=== PATIENT | male | born 1945 | race Caucasian/White ===

== ENCOUNTER → 2016-08-02 | Outpatient (CLI) | payer MEDICARE, OTHER ==
--- NOTE | 2016-08-02 10:16 | US ---
EXAMINATION TYPE: US abdomen complete DATE OF EXAM: 08/02/2016 8:49 AM COMPARISON: NONE CLINICAL HISTORY: R16.2 Hepatomegaly with splenomegaly, E80.6. Pt states elevated LFT's EXAM MEASUREMENTS: Liver Length: 16.4 cm Gallbladder Wall: 0.3 cm CBD: 0.6 cm Spleen: 13.1 cm Right Kidney: 11.0 x 5.7 x 5.3 cm Left Kidney: 12.0 x 6.1 x 5.9 cm TECHNOLOGIST IMPRESSION: Pancreas: Obscured by bowel gas Liver: Cyst right inferior lobe= 1.5 x 0.8 x 1.5 cm/ otherwise appeared wnl Gallbladder: Appeared slightly contracted, otherwise appeared wnl Evidence for sonographic Joshi's sign: CBD: wnl Spleen: Slightly enlarged the spleen measures 13 cm Right Kidney: wnl Left Kidney: wnl Upper IVC: wnl Abd Aorta: Proximal portion upper limits of normal There is no ascites The liver is homogenous, echotexture is coarse, there is a small cystic focus in the right lobe infer iorly measuring 15 mm. The intrahepatic portion of the IVC and proximal abdominal aorta are within n ormal limits. There is no evidence of cholelithiasis. Common bile duct is unremarkable. The visual ized portions of the pancreas are homogenous. The spleen is borderline enlarged. Kidneys are symmet tate and free of hydronephrosis. No renal lesions are seen. IMPRESSION: Probable fatty infiltration of the liver. Borderline splenomegaly. Somewhat limited exam.
== END ==
LOC: RADUSWWP 08:23
PROVIDERS: ATTEND Internal Medicine
DX: R16.1 Splenomegaly, not elsewhere classified (principal); R97.20 Elevated prostate specific antigen [PSA]
CPT/HCPCS: 36415; 76700; 84153

== ENCOUNTER → 2016-11-22 | Outpatient (CLI) | payer MEDICARE, OTHER ==
[2016-11-22 07:06] LABS: Basophils # (A) 0.1 k/uL (0-0.2); Basophils % (A) 1 %; CHCM 34.3; Eosinophils # (A) 0.1 k/uL (0-0.7); Eosinophils % (A) 1 %; HCT 42.8 % (39.0-53.0); HDW 2.57; HGB 14.6 gm/dL (13.0-17.5); Luc # (Auto) 0.14; Luc % (Auto) 2; Lymphocytes # (A) 2.1 k/uL (1.0-4.8); Lymphocytes % (A) 25 %; MCHC 34.2 g/dL (31.0-37.0); Mean Platelet Volume 8.1; Monocytes # (A) 0.5 k/uL (0-1.0); Monocytes % (A) 6 %; Neutrophils # (A) 5.4 k/uL (1.3-7.7); Neutrophils % (A) 65 %; RBC 4.87 m/uL (4.30-5.90); RDW 13.4 % (11.5-15.5); WBC 8.3 k/uL (3.8-10.6); WBC (Perox) 8.63
[2016-11-22 07:35] LABS: Anion Gap 11 mmol/L; Blood Urea Nitrogen 18 mg/dL (9-20); Calcium 9.2 mg/dL (8.4-10.2); Carbon Dioxide 23 mmol/L (22-30); Chloride 107 mmol/L (98-107); Glucose 127 mg/dL (74-99); Non-African American GFR(MDRD) >60 (>60 ml/min/1.73 sqM); Potassium 4.4 mmol/L (3.5-5.1); Sodium 141 mmol/L (137-145)
[2016-11-22 14:38] LABS: Hemoglobin A1C 7.3 % (4.2-6.1)
== END | disposition home or self-care (01) ==
LOC: LABWHC1 06:26
PROVIDERS: ATTEND Internal Medicine
DX: E11.9 Type 2 diabetes mellitus without complications (principal)
CPT/HCPCS: 36415; 80048; 83036; 85025

== ENCOUNTER → 2018-03-18 | Outpatient (CLI) | payer MEDICARE, OTHER ==
[2018-03-18 07:26] LABS: Basophils # (A) 0.1 k/uL (0-0.2); Basophils % (A) 1 %; Eosinophils # (A) 0.2 k/uL (0-0.7); Eosinophils % (A) 1 %; HCT 41.7 % (39.0-53.0); HGB 14.2 gm/dL (13.0-17.5); Lymphocytes # (A) 1.9 k/uL (1.0-4.8); Lymphocytes % (A) 17 %; MCH 30.9 pg (25.0-35.0); MCHC 34.1 g/dL (31.0-37.0); MCV 90.5 fL (80.0-100.0); Mean Platelet Volume 7.6; Monocytes # (A) 0.8 k/uL (0-1.0); Monocytes % (A) 7 %; Neutrophils # (A) 8.5 k/uL (1.3-7.7); Neutrophils % (A) 74 %; Platelet Count 260 k/uL (150-450); RBC 4.61 m/uL (4.30-5.90); RDW 13.3 % (11.5-15.5); WBC 11.5 k/uL (3.8-10.6)
[2018-03-18 08:38] LABS: Erythrocyte Sedimentation Rate 23 mm/hr (0-15)
[2018-03-18 12:48] LABS: Albumin 4.5 g/dL (3.80-4.90); Albumin/Globulin Ratio 2.14 (1.20-2.10); Anion Gap 7.9 mmol/L (4.00-12.00); C Reactive Protein 0.8 mg/dL (0.0-0.8); Calcium 9.3 mg/dL (8.7-10.3); Carbon Dioxide 29.1 mmol/L (21.6-31.8); Globulin 2.1 g/dL (2.1-3.7); LDL Cholesterol,Calculated 69.6 mg/dL (0.0-131.0); Magnesium 1.6 mg/dL (1.5-2.4); Potassium 5.1 mmol/L (3.5-5.5); Prostate Specific Antigen 1.9 ng/mL (0.0-6.5); Total Bilirubin 2.2 mg/dL (0.3-1.2); Total Protein 6.6 g/dL (6.2-8.2); VLDL Calculation 42.4 mg/dL (5.00-40.00)
== END | disposition home or self-care (01) ==
LOC: LABWHC1 06:45
PROVIDERS: ATTEND Internal Medicine
DX: E55.9 Vitamin D deficiency, unspecified (principal); E78.5 Hyperlipidemia, unspecified; I10 Essential (primary) hypertension; E66.9 Obesity, unspecified; N40.0 Benign prostatic hyperplasia without lower urinary tract symptoms; E11.9 Type 2 diabetes mellitus without complications
CPT/HCPCS: 36415; 80053; 80061; 82306; 82550; 83036; 83735; 84153; 84443; 85025; 85652; 86140

== ENCOUNTER 2021-11-03 13:16 | Observation (INO) | payer MEDICARE, OTHER ==
[2021-11-03] MEDS ORDERED: HEPARIN SODIUM 1,000 UN/ML (10ML VL) ONE (14:25)
[2021-11-03] MEDS ORDERED: MIDAZOLAM 2 MG/2 ML VIAL IV ONE (14:28)
[2021-11-03] MEDS ORDERED: HEPARIN SODIUM 1,000 UN/ML (10ML VL) IV ONE (14:34)
[2021-11-03] MEDS ORDERED: IV FLUID CONTINUATION 500 ML IV ONE (14:38)
[2021-11-03] MEDS ORDERED: CLOPIDOGREL 75 MG TAB ONE (14:47)
[2021-11-03] MEDS ORDERED: CLOPIDOGREL 75 MG TAB PO ONE (14:54)
[2021-11-03] MEDS ORDERED: ADENOSINE 90 MG in SODIUM CHLORIDE 0.9% 60 ML IVP ONE (15:06)
[2021-11-03] MEDS ORDERED: VERAPAMIL SYRINGE (5 MG/10 ML) INTRAARTER ONE (15:09)
[2021-11-03] MEDS ORDERED: IOPAMIDOL-370 125ML BTL INJ ONE (15:09)
[2021-11-03] MEDS ORDERED: ZOLPIDEM 5 MG TAB PO PRN (15:11)
[2021-11-03] MEDS ORDERED: NITROGLYCERIN SL TABS 0.4 MG TAB SUBLINGUAL PRN (15:11)
[2021-11-03] MEDS ORDERED: ATROPINE SULFATE 0.1 MG/ML 10ML SYRINGE IV PRN (15:11)
[2021-11-03] MEDS ORDERED: MAG HYDROX/AL HYDROX/SIMETH 30 ML CUP PO PRN (15:11)
[2021-11-03] MEDS ORDERED: RX INFO: IV CONTRAST WAS GIVEN 1 EACH MISC MISCELLANE PRN (15:11)
[2021-11-03] MEDS ORDERED: SODIUM CHLORIDE 0.9% 1,000 ML in EMPTY BAG 1 BAG IV SCH (15:15)
--- NOTE | 2021-11-03 15:15 | P.PCN ---
Date of Procedure: 11/03/21 Operative Findings: PERCUTANEOUS CORONARY INTERVENTION Performing physician Immanuel Pope M.D. Procedure Performed: 1. Successful stenting of the mid LAD using 2.75 x 18 mm Xience drug-eluting stent with an excellent angiographic results. 2. Fractional flow reserve FFR of the right coronary artery Indication: This is a 76-year-old gentleman who was experiencing chest discomfort and underwent a stress test came in to be abnormal. He underwent a heart catheterization at [facility] and was found to have severe disease involving the mid LAD and intermediate disease involving the RCA Approach: Right radial artery Complications: None Level of Sedation: Moderate with a sedation length of 37 minutes Procedure Discussion: These referred to diagnostic heart catheterization was performed earlier today. After obtaining an informed consent the patient was brought to the cardiac laborer orchard. Anticoagulation was initiated and continued using heparin with continuous ACT monitoring. Subsequently the left main was engaged using a JL 3.5 guiding catheter. The LAD was wired using a run-through wire. Predilatation was performed using 2.5 x 12 mm balloon before I deployed 2.75 x 18 mm stent where the stent was positioned under fluoroscopy guidance and deployed under its nominal pressure the following angiogram showed an excellent angiographic results. After that we decided to FFR of the RCA. After zeroing the Doppler wire and equalizing between the Doppler wire and the guiding catheter which was JR4 guiding catheter we did an FFR. IV adenosine infusion and FFR came in to be at 0.90 which is nonischemic Postprocedure Management: 1. Aggressive cholesterol control 2. Dual antiplatelet therapy using aspirin and Plavix for at least 6 months 3. Follow-up with the patient
[2021-11-03 15:41] LABS: Glucose,Whole Blood 86 mg/dL (70-110)
[2021-11-03] MEDS ORDERED: ACETAMINOPHEN TAB 500 MG TAB PO ONE (16:13)
[2021-11-03 16:33] LABS: Glucose,Whole Blood 124 mg/dL (70-110)
[2021-11-03] MEDS: INSULIN ASPART (NovoLOG) 100 UNIT/ML VIAL SQ SCH ×2 (16:45→20:18)
[2021-11-03] MEDS: hydrALAZINE HCL 50 MG TAB PO SCH ×2 (17:07→20:18)
[2021-11-03] MEDS ORDERED: ATORVASTATIN 20 MG TAB PO SCH (19:45)
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
[2021-11-03] MEDS: TAMSULOSIN 0.4 MG CAP.ER.24H PO SCH (20:18)
[2021-11-03] MEDS: lisinopriL 10 MG TAB PO SCH (20:18)
[2021-11-03 20:25] LABS: Glucose,Whole Blood 124 mg/dL (70-110)
[2021-11-03] MEDS ORDERED: lisinopriL 10 MG TAB PO SCH (21:00)
[2021-11-03] MEDS ORDERED: INSULIN DETEMIR (LEVEMIR) 100 UNIT/ML SYR SQ SCH (21:00)
[2021-11-03] MEDS ORDERED: ATORVASTATIN 80 MG TAB PO SCH (21:00)
[2021-11-03] MEDS ORDERED: hydrALAZINE HCL 50 MG TAB PO SCH (22:00)
[2021-11-04 05:57] LABS: Glucose,Whole Blood 104 mg/dL (70-110)
[2021-11-04] MEDS: INSULIN ASPART (NovoLOG) 100 UNIT/ML VIAL SQ SCH ×3 (06:05→07:29)
[2021-11-04] MEDS ORDERED: ACETAMINOPHEN TAB 325 MG TAB PO PRN (06:58)
[2021-11-04] MEDS: TAMSULOSIN 0.4 MG CAP.ER.24H PO SCH (08:52)
[2021-11-04] MEDS: lisinopriL 10 MG TAB PO SCH (08:52)
[2021-11-04] MEDS: hydrALAZINE HCL 50 MG TAB PO SCH (08:52)
[2021-11-04] MEDS ORDERED: ASPIRIN 81 MG PO SCH (09:00)
[2021-11-04] MEDS ORDERED: CLOPIDOGREL 75 MG TAB PO SCH (09:00)
[2021-11-04] MEDS ORDERED: NON FORMULARY DRUG (Aspirin Ec 81 MG Tablet) PO SCH (09:00)
[2021-11-04] MEDS ORDERED: NON FORMULARY DRUG (Omega-3/Dha/Epa/Fish Oil [Fish Oil 1,000 Mg Softgel] 1 EACH Capsule) PO SCH (09:00)
[2021-11-04] MEDS ORDERED: lisinopriL 10 MG TAB PO SCH (09:00)
[2021-11-04] MEDS ORDERED: CHOLECALCIFEROL 25 MCG (1000 IU) TABLET PO SCH (09:00)
[2021-11-04 09:47] VITALS: BP 160/68; PULSE 46; RESP 16; TEMP 98.4
--- NOTE | 2021-11-04 10:59 | P.PN ---
Subjective Progress Note Date: 11/04/21 (Chest pain, coronary artery occlusive disease, status post stent in the LAD.) Dictation on the progress note Date of service 11/04/[address] Dave For follow-up on the medical consult. Final diagnosis: #1 coronary artery occlusive disease #2 status post cardiac catheterization in the [facility] by Dr. Vaughn. #3 transferred from [facility] to [facility] #4 status post angioplasty and stent placement in the LAD by Dr. Yuan. #5 diabetes mellitus type 2 insulin-dependent #6 sinus bradycardia. #7 hyperlipidemia #8 hypertension was hypertensive heart disease The attending physician Dr. Yuan. Wildlife Science Professor interventional. Patient seen today for follow-up on the medical consult. Patient denied any chest pain or shortness of breath or dizziness and his blood pressure is stable. His medication reconciled and reviewed. New Medication changes: #1 he has been on dual therapy for antiplatelet with chewable aspirin and Plavix. Cardiology Patient has eluted stent in the left anterior descending artery with the angioplasty as mentioned above #2 diabetes mellitus the same medication #3 hyperlipidemia with the increase of the atorvastatin to 80 mg until in the future seen his ergonomic specialist and adjust the dose. Patient is stable for discharge home from my medical point of view however this per cardiology decision when they make around. Dqcf-[id number]-vpos exam: No complaint, no bleeding from the site of the catheterization which is a right forearm. Head was normocephalic and atraumatic, normal hearing oropharynx negative Neck was supple no JVD no thyromegaly no lymphadenopathy trachea midline. Chest is clear to auscultation percussion Heart regular sinus rhythm with bradycardia. Abdomen: Soft positive bowel sounds Extremities no edema. Pulses. Neurologically stable. Assessment: Patient stable for discharge from medical point of view and up to the cardiology for the final decision. Follow-up appointment with Dr. Ritter in 57 days and follow-up with the cardiology of his choice Objective - Vital Signs Vital signs: Vital Signs Temp 98.4 F 11/04/21 08:50 Pulse 46 L 11/04/21 08:50 Resp 16 11/04/21 08:50 BP 160/68 11/04/21 08:50 Pulse Ox 96 11/04/21 08:50 FiO2 Intake & Output 11/03/21 11/04/21 11/04/21 18:59 06:59 18:59 Intake Total 415 600 118 Output Total 500 Balance -85 600 118 Weight 111 kg Intake: IV 175 Oral 240 600 118 Output: Urine 500 Other: # Voids 2 - Labs CBC & Chem 7: 11/04/21 08:03 Labs: Abnormal Lab Results - Last 24 Hours (Table) 11/03/21 11/03/21 Range/Units 16:32 20:17 POC Glucose (mg/dL) 124 H 124 H (70-110) mg/dL
[2021-11-04 12:02] LABS: Glucose,Whole Blood 117 mg/dL (70-110)
[2021-11-04 12:49] VITALS: BMI 35.1
--- NOTE | 2021-11-04 13:37 | P.DS ---
Providers Date of admission: 11/03/21 14:20 Attending physician: Immanuel Pope Consults: 11/03/21 15:11 Consult Physician Routine Consulting Provider: [facility] Consult Reason/Comments: Post Interventional Patient Do you want consulting provider notified?: Already Contacted 11/03/21 17:52 Consult Physician Routine Consulting Provider: [facility] Reason/Comments: medical management Do you want consulting provider notified?: Already Contacted Primary care physician: Immanuel Pope [facility] Course: This is a 76-year-old male who underwent cardiac catheterization with Dr. Yuan yesterday revealing successful stenting of the mid LAD and fractional flow reserve of the right coronary artery which was nonischemic. Patient is doing well post procedure. He denies chest pain or pressure. Denies shortness of breath. Vital signs are stable. No beta blake prescribed at discharge secondary to bradycardia. This will be reassessed on an outpatient basis. The patient was deemed stable for discharge home today per Dr. Yuan. He is to follow up on an outpatient basis Discharge diagnosis Coronary artery disease, status post stenting of mid LAD Nurse practitioner note has been reviewed by physician. Signing provider agrees with the documented findings, assessment, and plan of care. Plan - Discharge Summary New Discharge Prescriptions: New Atorvastatin [Lipitor] 80 mg PO HS #30 tab Aspirin 81 mg PO DAILY tab Nitroglycerin Sl Tabs [Nitrostat] 0.4 mg SUBLINGUAL Q5M PRN #30 tab PRN Reason: Chest Pain Clopidogrel [Plavix] 75 mg PO DAILY #90 tab Acetaminophen Tab [Tylenol] 650 mg PO Q6HR PRN tab PRN Reason: Fever And/ Or Pain Continue Tamsulosin HCl [Flomax] 0.4 mg PO BID Calvin-3/Dha/Epa/Fish Oil [Fish Oil 1,000 mg Softgel] 1 cap PO DAILY Cholecalciferol [Vitamin D3 (25 Mcg = 1000 Iu)] 25 mcg PO DAILY lisinopriL [Zestril] 10 mg PO BID Insulin Lispro [humaLOG Kwikpen] 10 unit SQ AC-TID Insulin Lispro [humaLOG Kwikpen] See Protocol SQ AC-TID PRN PRN Reason: high blood sugar Insulin Glargine,Hum.rec.anlog [[place] Solostar] 25 units SQ HS hydrALAZINE HCL [Apresoline] 100 mg PO TID Discontinued Atorvastatin [Lipitor] 20 mg PO DAILY Aspirin EC [Ecotrin Low Dose] 81 mg PO DAILY Discharge Medication List Cholecalciferol [Vitamin D3 (25 Mcg = 1000 Iu)] 25 mcg PO DAILY 11/03/21 [History] Insulin Glargine,Hum.rec.anlog [Tonya Alonzoostkait] 25 units SQ HS 11/03/21 [History] Insulin Lispro [humaLOG Kwikpen] 10 unit SQ AC-TID 11/03/21 [History] Insulin Lispro [humaLOG Kwikpen] See Protocol SQ AC-TID PRN 11/03/21 [History] Calvin-3/Dha/Epa/Fish Oil [Fish Oil 1,000 mg Softgel] 1 cap PO DAILY 11/03/21 [History] Tamsulosin HCl [Flomax] 0.4 mg PO BID 11/03/21 [History] hydrALAZINE HCL [Apresoline] 100 mg PO TID 11/03/21 [History] lisinopriL [Zestril] 10 mg PO BID 11/03/21 [History] Acetaminophen Tab [Tylenol] 650 mg PO Q6HR PRN tab 11/04/21 [Rx] Aspirin 81 mg PO DAILY tab 11/04/21 [Rx] Atorvastatin [Lipitor] 80 mg PO HS #30 tab 11/04/21 [Rx] Clopidogrel [Plavix] 75 mg PO DAILY #90 tab 11/04/21 [Rx] Nitroglycerin Sl Tabs [Nitrostat] 0.4 mg SUBLINGUAL Q5M PRN #30 tab 11/04/21 [Rx] Follow up Appointment(s)/Referral(s): Burt Cannon MD [STAFF PHYSICIAN] - 11/11/21 10:45 am Patient Instructions/Handouts: *[facility] - After Heart Catheterization - Communications Programmer Instructions
== END 2021-11-04 14:02 | disposition home or self-care (01) ==
LOC: 3SCARD 14:20
PROVIDERS: ADMIT Internal Medicine Interventional Cardiology; ATTEND Internal Medicine Interventional Cardiology
DX: I25.10 Atherosclerotic heart disease of native coronary artery without angina pectoris (principal); I12.9 Hypertensive chronic kidney disease with stage 1 through stage 4 chronic kidney disease, or unspecified chronic kidney disease; E11.22 Type 2 diabetes mellitus with diabetic chronic kidney disease; N18.9 Chronic kidney disease, unspecified; E78.5 Hyperlipidemia, unspecified; N40.0 Benign prostatic hyperplasia without lower urinary tract symptoms; I35.0 Nonrheumatic aortic (valve) stenosis; E78.00 Pure hypercholesterolemia, unspecified; R00.1 Bradycardia, unspecified; E66.9 Obesity, unspecified; Z68.35 Body mass index [BMI] 35.0-35.9, adult; R74.8 Abnormal levels of other serum enzymes; Z86.73 Personal history of transient ischemic attack (TIA), and cerebral infarction without residual deficits; Z98.890 Other specified postprocedural states; Z98.42 Cataract extraction status, left eye; Z98.41 Cataract extraction status, right eye; Z87.891 Personal history of nicotine dependence; Z79.82 Long term (current) use of aspirin; Z79.4 Long term (current) use of insulin; Z79.899 Other long term (current) drug therapy
CPT/HCPCS: 93571; 82565; G0378 ×2; G0379; C9600; C1887 ×2; C1769 ×3; C1725; C1874; J2250; J1644; J0153; Q9967

== ENCOUNTER → 2021-11-29 | Outpatient (CLI) | payer MEDICARE, OTHER ==
--- NOTE | 2021-11-29 12:45 | US ---
EXAMINATION TYPE: US kidneys/renal and bladder DATE OF EXAM: 11/29/2021 COMPARISON: NONE CLINICAL HISTORY: N28.9 KNOWN RENAL DISEASE, N18.30 CKD. CKD EXAM MEASUREMENTS: Right Kidney: 11.7 x 5.5 x 5.0 cm Left Kidney: 12.0 x 5.8 x 5.1 cm Right Kidney: cystic area lower pole = 1.4 x 1.6cm . No hydronephrosis or nephrolithiasis. Left Kidney: no evidence of hydronephrosis or nephrolithiasis Bladder: not fully distended and therefore limited. Bilateral Jets seen: no IMPRESSION: No hydronephrosis or nephrolithiasis. Suspect a simple cyst 1.6 cm right kidney.
== END | disposition home or self-care (01) ==
LOC: RADUSWWP 12:04
PROVIDERS: ATTEND Internal Medicine
DX: N18.30 Chronic kidney disease, stage 3 unspecified (principal)
CPT/HCPCS: 76770

== ENCOUNTER → 2022-09-23 | Outpatient (CLI) | payer MEDICARE, OTHER ==
[2022-09-24 00:10] LABS: Basophils # (A) 0.05 X 10*3/uL (0.00-0.10); Basophils % (A) 0.7 %; Eosinophils # (A) 0.09 X 10*3/uL (0.04-0.35); Eosinophils % (A) 1.3 %; HCT 38.7 % (39.6-50.0); HGB 12.5 g/dL (13.0-17.0); Immature Grans, Automated 0.3 %; Lymphocytes % (A) 31.1 %; MCH 29.8 pg (27.0-32.0); MCHC 32.3 g/dL (32.0-37.0); MCV 92.1 fL (80.0-97.0); Mean Platelet Volume 13.1 fL (9.5-12.2); Monocytes # (A) 0.53 X 10*3/uL (0.20-1.00); Monocytes % (A) 7.9 %; NRBC Per 100 WBC 0 /100 WBCS (0.0-0.0); Neutrophils # (A) 3.96 X 10*3/uL (1.80-7.70); Neutrophils % (A) 58.7 %; Platelet Count 245 X 10*3/uL (140-440); RDW 13.5 % (11.5-14.5); WBC 6.75 X 10*3/uL (4.50-10.00)
[2022-09-24 07:42] LABS: % Iron Saturation 22.04 (15.00-50.00)
== END | disposition home or self-care (01) ==
LOC: LABWHC1 10:17
PROVIDERS: ATTEND Nurse Practitioner Family
DX: D64.9 Anemia, unspecified (principal)
CPT/HCPCS: 36415; 82728; 83540; 83550; 85025

== ENCOUNTER 2022-09-27 10:41 | Day surgery (SDC) | payer MEDICARE, OTHER ==
[2022-09-27] MEDS ORDERED: LACTATED RINGERS 1,000 ML IV SCH (11:31)
[2022-09-27] MEDS ORDERED: LIDOCAINE 1% (10MG/ML) FOR IV START INTRADERMA PRN (11:31)
[2022-09-27] MEDS ORDERED: LACTATED RINGERS 1,000 ML IV ONE (11:44)
[2022-09-27 11:51] LABS: Glucose,Whole Blood 83 mg/dL (70-110)
[2022-09-27 12:02] VITALS: TEMP 97.9
[2022-09-27] MEDS ORDERED: PROPOFOL 10 MG/ML 20 ML VIAL IV ONE (13:16)
[2022-09-27] MEDS ORDERED: LIDOCAINE 2% INJ 20 MG/ML (2 ML VIAL) ONE (13:16)
[2022-09-27] MEDS ORDERED: GLYCOPYRROLATE 0.2 MG/ML 2 ML VIAL ONE (13:16)
--- NOTE | 2022-09-27 13:37 | P.PCN ---
Date of Procedure: 09/27/22 Procedure(s) Performed: Brief history: Patient is a pleasant 87-year-old white male scheduled for an elective upper endoscopy as well as colonoscopy as a part of evaluation of Iron deficiency anemia. Procedure performed: Esophagogastroduodenoscopy with biopsy Colonoscopy with biopsy Preoperative diagnosis: Iron deficiency anemia [place]est[place]: [facility] Procedure: After informed consent was obtained from the patient was brought into the endoscopy unit and IV sedation was administered by anesthesia under continuous monitoring. Initially upper endoscopy was done. The Olympus GF 160 video endoscope was inserted inserted into the mouth and esophagus intubated without any difficulty and was gradually advanced into the stomach and duodenum and carefully examined. The bulb and second part of the duodenum appeared normal. Biopsies were done from the duodenum to rule out celiac disease The scope was then withdrawn into the stomach adequately insufflated with air and upon careful examination the antrum had diffuse gastritis and biopsies were done from this area. Mucosa of the body, cardia and fundus appeared normal. The scope was then withdrawn into the esophagus. The GE junction was located at 40 cm to the incisors. It appeared regular with no erythema erosions or ulcerations. Rest of the esophagus appeared normal. Patient tolerated the procedure well. At this time the patient continued to remain sedation. Initial digital rectal examination was normal. Olympus CF 160 video colonoscope was then inserted into the rectum and gradually advanced to the cecum without any difficulty. Careful examination was performed as the scope was gradually being withdrawn. The prep was fair.. The cecum, appeared normal. In the ascending colon there was a 3 mm and 4 mm polyp that was removed by cold biopsy. Rest of the ascending colon, transverse colon, descending colon, sigmoid colon and rectum appeared normal. Retroflexion was performed in the rectum and no lesions were noted. Patient tolerated the procedure well. Impression: 1. Endoscopy revealed diffuse antral gastritis but no evidence of peptic ulcer disease or esophagitis 2. Colonoscopy revealed 3 mm and a 4 mm ascending colon polyp status post biopsy. Rest of the colon appeared normal Recommendations: Findings of this examination were discussed with the patient as well as his family. He was advised to follow with the biopsy results. If the biopsy results and he can have a repeat colonoscopy in 5 years.
[2022-09-27 13:46] VITALS: RESP 16
[2022-09-27 14:11] VITALS: BP 129/78; PULSE 46
== END 2022-09-27 14:20 | disposition home or self-care (01) ==
LOC: ORWHC2ENDO 10:41
PROVIDERS: ATTEND Internal Medicine Gastroenterology
DX: K29.50 Unspecified chronic gastritis without bleeding (principal); D12.2 Benign neoplasm of ascending colon; D50.9 Iron deficiency anemia, unspecified; I25.2 Old myocardial infarction; I10 Essential (primary) hypertension; E78.5 Hyperlipidemia, unspecified; I25.10 Atherosclerotic heart disease of native coronary artery without angina pectoris; Z95.5 Presence of coronary angioplasty implant and graft; Z86.73 Personal history of transient ischemic attack (TIA), and cerebral infarction without residual deficits; Z79.4 Long term (current) use of insulin; Z79.899 Other long term (current) drug therapy; Z79.82 Long term (current) use of aspirin; Z98.890 Other specified postprocedural states; Z88.8 Allergy status to other drugs, medicaments and biological substances
CPT/HCPCS: 88305; 45380; 43239; J2704; J2001

== ENCOUNTER → 2023-02-16 | Outpatient (CLI) | payer MEDICARE, OTHER ==
--- NOTE | 2023-02-16 13:30 | XR ---
EXAMINATION TYPE: XR chest 2V DATE OF EXAM: 02/16/2023 COMPARISON: NONE HISTORY: Shortness of breath TECHNIQUE: Frontal and lateral views of the chest are obtained. FINDINGS: Scattered senescent parenchymal changes noted. Hyperinflation compatible with COPD. No evidence for infiltrate. No evidence for atelectasis. Heart size is stable. Mediastinal structures are stable and grossly unremarkable. No evidence for hilar prominence. Degenerative changes dorsal spine. IMPRESSION: 1. No evidence for acute pulmonary disease.
== END | disposition home or self-care (01) ==
LOC: LABWHC1 13:05
PROVIDERS: ATTEND Internal Medicine
DX: J40 Bronchitis, not specified as acute or chronic (principal)
CPT/HCPCS: 71046

== ENCOUNTER → 2023-08-20 | Outpatient (CLI) | payer MEDICARE, OTHER ==
[2023-08-20 16:21] LABS: Blood Urea Nitrogen 25.1 mg/dL (9.0-27.0); Carbon Dioxide 25.4 mmol/L (21.6-31.8); Chloride 104 mmol/L (96-109); Potassium 5.3 mmol/L (3.5-5.5); Sodium 139 mmol/L (135-145)
[2023-08-20 16:59] LABS: HCT 38.9 % (39.6-50.0); HGB 12.4 g/dL (13.0-17.0); MCH 29.7 pg (27.0-32.0); MCHC 31.9 g/dL (32.0-37.0); MCV 93.3 FL (80.0-97.0); Mean Platelet Volume 12.1 FL (9.5-12.2); NRBC Per 100 WBC 0 X 10*3/uL (0.00-0.01); Platelet Count 282 X 10*3/uL (140-440); RBC 4.17 X 10*6/uL (4.40-5.60); RDW 13.2 % (11.5-14.5); WBC 7.29 X 10*3/uL (4.50-10.00)
== END | disposition home or self-care (01) ==
LOC: LABPAT 09:58
PROVIDERS: ATTEND Internal Medicine Interventional Cardiology
DX: Z01.812 Encounter for preprocedural laboratory examination (principal); I35.0 Nonrheumatic aortic (valve) stenosis
CPT/HCPCS: 36415; 80051; 82565; 84520; 85027

== ENCOUNTER 2023-08-23 05:37 | Day surgery (SDC) | payer MEDICARE, OTHER ==
[2023-08-23] MEDS ORDERED: HEPARIN SODIUM,PORCINE 10,000 UNIT in SODIUM CHLORIDE 0.9% 1,000 ML IRRIGATION PRN (05:56)
[2023-08-23] MEDS ORDERED: HEPARIN SODIUM,PORCINE (1 ML) 2,500 UNIT in SODIUM CHLORIDE 0.9% 250 ML IRRIGATION PRN (05:56)
[2023-08-23] MEDS ORDERED: ALPRAZolam 0.25 MG TAB PO PRN (05:56)
[2023-08-23] MEDS ORDERED: NITROGLYCERIN SL TABS 0.4 MG TAB SUBLINGUAL PRN ×2 (05:56→09:06)
[2023-08-23] MEDS: ALPRAZolam 0.5 MG TAB PO PRN (06:22)
[2023-08-23 06:31] LABS: Glucose,Whole Blood 172 mg/dL (70-110)
[2023-08-23] MEDS: amLODIPine 2.5 MG TAB PO ONE (07:08)
[2023-08-23] MEDS: ASPIRIN 325 MG TAB PO ONE (07:08)
[2023-08-23] MEDS ORDERED: HEPARIN SODIUM 1,000 UN/ML (10ML VL) ONE ×2 (07:08→08:28)
[2023-08-23] MEDS: ISOSORBIDE MONONITRATE ER 30 MG TAB.ER.24H PO ONE (07:08)
[2023-08-23] MEDS ORDERED: VERAPAMIL 2.5 MG/ML 2 ML AMP ONE (07:08)
[2023-08-23] MEDS ORDERED: fentaNYL (PF) 50 MCG/ML 2 ML AMP ONE (07:08)
[2023-08-23] MEDS: SODIUM CHLORIDE 0.9% 1,000 ML IV ONE (07:11)
[2023-08-23] MEDS: fentaNYL (PF) 50 MCG/ML 2 ML AMP IVP ONE ×2 (07:37→07:40)
[2023-08-23] MEDS: LIDOCAINE 2% (PF) 20 MG/ML 2 ML VIAL SQ ONE (07:40)
[2023-08-23] MEDS: LIDOCAINE 1% INJ 10MG/ML (20 ML MDV) SQ ONE (07:40)
[2023-08-23] MEDS: MIDAZOLAM 2 MG/2 ML VIAL IVP ONE (07:43)
[2023-08-23] MEDS: LIDOCAINE 1% INJ 10MG/ML (20 ML MDV) ONE (07:53)
[2023-08-23] MEDS: VERAPAMIL SYRINGE (5 MG/10 ML) INTRAARTER ONE (07:56)
[2023-08-23] MEDS: HEPARIN SODIUM 1,000 UN/ML (10ML VL) IVP ONE ×2 (07:58→08:29)
[2023-08-23] MEDS ORDERED: CLOPIDOGREL 75 MG TAB ONE (08:04)
[2023-08-23] MEDS: CLOPIDOGREL 75 MG TAB PO ONE (08:08)
[2023-08-23] MEDS: IOPAMIDOL-370 100ML BTL INJ ONE ×2 (08:21→08:54)
[2023-08-23] MEDS ORDERED: ATROPINE SULFATE 0.1 MG/ML 10ML SYRINGE IV PRN (09:06)
[2023-08-23] MEDS ORDERED: RX INFO: IV CONTRAST WAS GIVEN 1 EACH MISC MISCELLANE PRN (09:06)
[2023-08-23] MEDS ORDERED: MAG HYDROX/AL HYDROX/SIMETH 30 ML CUP PO PRN (09:06)
--- NOTE | 2023-08-23 09:16 | P.CARDCATH ---
Date of Procedure: 08/23/23 Description of Procedure: Cardiac Catheterization: The patient is a 78-year-old male with a known history of hypertension, hyperlipidemia, diabetes mellitus, post PCI in 2021 who presented with symptoms of progressive angina pectoris improved with nitroglycerin. Recommendations were made regarding cardiac catheterization, the risks and the complications were discussed with the patient who is in full understanding and agreement. Procedure Description: Patient was brought to labor relations worker in fasting semi-sedated state after receiving Fentanyl and Benadryl achieiving moderate conscious sedated state. Using Xylocaine Anesthesia and modified Seldinger technique, a 6-[place] sheath was introduced in the left radial artery . Attempt to cannulate the right radial artery were unsuccessful secondary to poor pulse. Subsequently, selective coronary angiography was performed using a 5-[place] 4 bend Sariah catheter. Multiple views of the coronary artery including hemiaxial views were obtained. The 5 [place] pigtail catheter was used to cross the aortic valve and LVEDP was calculated. PCI: After removing the catheters a 6 [place] CLS 3.5 guiding catheter was introduced and after cannulating the left main a 0.014 BMW J-wire was positioned in the distal left circumflex and another 0.014 BMW J-wire was positioned in the LAD. Subsequently a 2.5 x 12 mm trek balloon was advanced and 1 inflation and proximal circumflex at 8 sae was done. After removing the balloon a [employer] eye IVUS catheter was introduced and imaging were performed. Subsequently a 3.5 x 18 mm Xience yosi point stent was positioned in the proximal and ostial left circumflex and deployed at 16 sae. Repeat IVUS imaging was performed and subsequently a 4.0 x 12 mm NC trek balloon was advanced and 1 inflation in the proximal segment was performed at 10 sae. After the last inflation the wires were removed and images were performed and revealed stable successful stenting. Following that, catheter and sheath were removed. Hemostasis was obtained with deployment of vascular band . There was no immediate complication. Patient was returned to room in stable condition. Of note, the patient received a total of 11,000 units of intravenous heparin as well as intra-arterial verapamil. The patient received an oral loading dose of clopidogrel. His ACT was monitored. He had chest discomfort with the inflations that resolved at the end of the procedure. Findings: Left main: This is a large size vessel, bifurcating into LAD and left circumflex, left main has no obstructive disease. LAD: This is a large size vessel, reaching to the apex giving rise to 2 diagonal branch. The stented segment in the mid LAD is patent. The ostium of the LAD has 20 to 30% plaque. Left circumflex: This is a large nondominant vessel giving rise to a large obtuse marginal branch. The proximal and ostial left circumflex has a 99% calcified hazy lesion. The rest of the vessel has no high-grade stenosis. RCA: This is a large dominant vessel, bifurcating distally to PDA and PLV. The mid right coronary artery has a 60 to 70% eccentric lesion with no significant progression compared to 2021 Left Ventriculogram: Not performed Hemodynamics: There was no gradient across the aortic valve, LVEDP was 10-12 mmHg Conclusion: 1. Severe stenosis involving the ostium of the left circumflex and proximal left circumflex 2. Patent stent in the LAD 3. Moderate disease in the mid RCA with no progression compared to 2021 4. Successful stenting of the proximal and ostial left circumflex with reduction of stenosis from 99% to less than 5% with JIM-3 flow with adjunctive IVUS imaging. There was a 40 to 50% plaque at the ostium of the LAD with JIM-3 flow. Recommendations: The patient will continue on aspirin and clopidogrel without any interruption for 6 months in addition to aggressive coronary risks modification attempting to maintain LDL below 70 mg/dL. The findings and the recommendations were discussed with the patient and the family and they were in full understanding and agreement. Duration of sedation is 68 minutes.
[2023-08-23] MEDS: SODIUM CHLORIDE 0.9% 1,000 ML in EMPTY BAG 1 BAG IV SCH (09:19)
[2023-08-23] MEDS: SODIUM CHLORIDE 0.9% 1,000 ML in EMPTY BAG 1 BAG IV ONE (09:20)
[2023-08-23] MEDS: ATORVASTATIN 80 MG TAB PO ONE (10:03)
[2023-08-23 12:43] LABS: Glucose,Whole Blood 152 mg/dL (70-110)
[2023-08-23 18:01] LABS: Glucose,Whole Blood 165 mg/dL (70-110)
[2023-08-23] MEDS: lisinopriL 10 MG TAB PO SCH (21:07)
[2023-08-23] MEDS: ZOLPIDEM 5 MG TAB PO PRN (21:07)
[2023-08-23] MEDS: ATORVASTATIN 80 MG TAB PO SCH (21:07)
[2023-08-23] MEDS: amLODIPine 2.5 MG TAB PO SCH (21:07)
[2023-08-23] MEDS: INSULIN DETEMIR (LEVEMIR) 100 UNIT/ML SYR SQ SCH (21:07)
[2023-08-23 21:08] LABS: Glucose,Whole Blood 161 mg/dL (70-110)
[2023-08-24 04:31] LABS: African American GFR (CKD) 74 (>60 ml/min/1.73 sqM); Anion Gap 3 mmol/L; Blood Urea Nitrogen 21 mg/dL (9-20); Calcium 9.1 mg/dL (8.4-10.2); Carbon Dioxide 25 mmol/L (22-30); Chloride 110 mmol/L (98-107); Glucose 95 mg/dL (74-99); Non-African American GFR(CKD) 64 (>60 ml/min/1.73 sqM); Potassium 4.8 mmol/L (3.5-5.1); Sodium 138 mmol/L (137-145)
--- NOTE | 2023-08-24 07:13 | P.PN ---
Subjective Progress Note Date: 08/24/23 PROGRESS NOTE The patient is a 78-year-old male with known history of hypertension, hyperlipidemia, diabetes mellitus, coronary artery disease and aortic stenosis who has been complaining of progressive exertional chest discomfort, he underwent cardiac catheterization and was found to have critical stenosis in the ostium and proximal left circumflex, moderate disease in the RCA that has not progressed. He had evidence of moderate aortic stenosis. He underwent stenting of the ostium and proximal left circumflex. He feels better today. He denies any chest discomfort, dizziness or palpitations. He continues to be in sinus mechanism. Ambulating without difficulties. Medications: Aspirin, Plavix 75 mg daily, amlodipine 2.5 mg twice a day, Lipitor 80 mg daily, insulin, isosorbide mononitrate 30 mg daily, lisinopril 10 mg twice a day, Actos 15 mg daily, Flomax PHYSICAL EXAMINATION: Blood pressure 126/70 heart rate 48 LUNGS: [Clear to auscultation] HEART: [Regular rate and rhythm, S1, S2. No S3. Systolic ejection murmur, 07/17] ABDOMEN: [Soft, nontender, no organomegaly] EXTREMETIES: [No edema, right radial pulse intact] LAB: Sinus bradycardia with no acute ST segment changes, BUN 21, creatinine 1.1 IMPRESSION: 1. Status post stenting of the ostium of the left circumflex and proximal left circumflex 2. Moderate disease in the RCA 3. Moderate aortic stenosis 4. Hypertension 5. Hyperlipidemia 6. Diabetes mellitus PLAN: 1. Increase physical activity 2. Continue present therapy with dual antiplatelet treatment for 6 months 3. Discharge home today 4. Follow-up as an outpatient in regard to the aortic valve. Objective - Vital Signs Vital signs: Vital Signs Temp 97.7 F 08/24/23 07:00 Pulse 44 L 08/24/23 07:00 Resp 16 08/24/23 07:00 BP 149/70 08/24/23 07:00 Pulse Ox 97 08/24/23 07:00 FiO2 Intake & Output 08/23/23 08/24/23 08/24/23 18:59 06:59 18:59 Intake Total 786 Balance 786 Weight 104.7 kg Intake: IV 550 Oral 236 Other: Voiding Method Toilet # Voids 1 1 - Labs CBC & Chem 7: 08/24/23 04:03 Labs: Abnormal Lab Results - Last 24 Hours (Table) 08/23/23 08/23/23 08/23/23 Range/Units 12:42 17:59 21:06 Chloride (98-107) mmol/L BUN (9-20) mg/dL POC Glucose (mg/dL) 152 H 165 H 161 H (70-110) mg/dL 08/24/23 Range/Units 04:03 Chloride 110 H (98-107) mmol/L BUN 21 H (9-20) mg/dL POC Glucose (mg/dL) (70-110) mg/dL
[2023-08-24 07:17] VITALS: BP 149/70; RESP 16; TEMP 97.7
[2023-08-24] MEDS ORDERED: CHOLECALCIFEROL 125 MCG (5000 IU) TABLET PO SCH (09:00)
[2023-08-24] MEDS: PIOGLITAZONE 15 MG TAB PO SCH (10:14)
[2023-08-24] MEDS: ASPIRIN 81 MG PO SCH (10:14)
[2023-08-24] MEDS: CLOPIDOGREL 75 MG TAB PO SCH (10:14)
[2023-08-24] MEDS: TAMSULOSIN 0.4 MG CAP.ER.24H PO SCH (10:14)
[2023-08-24] MEDS: ISOSORBIDE MONONITRATE ER 15 MG TAB PO SCH (10:15)
[2023-08-24 10:51] VITALS: PULSE 47
[2023-08-24 11:33] VITALS: BMI 33.1
[2023-08-26] MEDS ORDERED: Semaglutide [Ozempic] 0.25 MG/0.368 ML Pen.Injctr SQ SCH (09:00)
== END 2023-08-24 11:19 | disposition home or self-care (01) ==
LOC: CATHCVL 05:37 → 6NMEDSUR 08:48 → CATHCVL 08-24 11:19
PROVIDERS: ATTEND Internal Medicine Interventional Cardiology
DX: I25.10 Atherosclerotic heart disease of native coronary artery without angina pectoris (principal); I35.0 Nonrheumatic aortic (valve) stenosis; E11.9 Type 2 diabetes mellitus without complications; E78.5 Hyperlipidemia, unspecified; I10 Essential (primary) hypertension; Z79.02 Long term (current) use of antithrombotics/antiplatelets; Z79.4 Long term (current) use of insulin; Z79.82 Long term (current) use of aspirin; Z79.84 Long term (current) use of oral hypoglycemic drugs; Z79.899 Other long term (current) drug therapy; Z95.5 Presence of coronary angioplasty implant and graft
CPT/HCPCS: 92978; 93458; 80048; C9600; C1769 ×3; C1887 ×2; C1894; C1725 ×2; C1753; C1874; J2250; J2001; J3010; J1644; Q9967